=== PATIENT | male | born 1950 | race Caucasian/White ===

== ENCOUNTER → 2016-02-09 | Outpatient (CLI) | payer BC, MEDICARE ==
[~2016-02-09] MED LIST: ALLO300T PO; ASPI-484 PO; CLOP75TA22 PO; LOSA100T6 PO; METF500T4 PO; OMEG1CAP38 PO; OMEP40CA6 PO; RIVA20TA PO; [UNRECOGNIZED DRUG - CODE] PO
== END | disposition home or self-care (01) ==
LOC: SLAB 19:42
PROVIDERS: ATTEND Internal Medicine
DX: G47.33 Obstructive sleep apnea (adult) (pediatric) (principal)
CPT/HCPCS: 95811

== ENCOUNTER 2016-06-10 02:51 | Emergency (ER) | payer BC, MEDICARE ==
[~2016-06-10] VITALS: Ht 175.3 cm; Wt 110.2 kg
--- NOTE | 2016-06-10 03:24 | NUR ---
ultrasound ULTRASOUND CALLED OUT FOR EXAM
[2016-06-10] MEDS ORDERED: TORADOL ONE (03:27)
[2016-06-10] MEDS ORDERED: TORADOL IM ONE (03:30)
--- NOTE | 2016-06-10 03:51 | ER.PDOC ---
General Chief Complaint: Extremities Stated Complaint: RT LEG PAIN Time seen by MD: 03:50 Source: patient Exam Limitations: no limitations History of Present Illness Initial Comments Right leg pain of sudden onset. Denies injury. Onset: this morning Where: home Severity: severe Exacerbated By: walking movement Relieved By: rest Allergies: Coded Allergies: methadone (Verified Allergy, Intermediate, Rash, 07/01/14) morphine (Verified Allergy, Intermediate, Rash, 07/01/14) niacin (Verified Allergy, Intermediate, Rash, 07/01/14) Home Meds Active Scripts Clopidogrel Bisulfate (PLAVIX) 75 Mg Tablet, 75 MG PO DAILY for ANTIPLATELET, # 30 TABLET 4 Refills Prov:COREY GALEANA MD 12/01/15 Aspirin (ASPIR 81) 81 Mg Tablet.dr, 162 MG PO DAILY, #30 4 Refills Prov:COREY GALEANA MD 12/01/15 Reported Medications Omeprazole (OMEPRAZOLE) 40 Mg Capsule.dr, 1 CAP PO DAILY, #90 CAP 3 Refills 07/01/14 [place]-3/Dha/Epa/Fish Oil (FISH OIL 1,400 MG SOFTGEL) 1 Each Capsule.dr, 1 EACH PO 07/01/14 Topiramate (TOPIRAMATE) 100 Mg Tablet, 1 TAB PO TID, #60 TAB 2 Refills 07/01/14 Losartan Potassium (LOSARTAN POTASSIUM) 100 Mg Tablet, 1 TAB PO DAILY, #90 TAB 3 Refills 07/01/14 Metformin Hcl (METFORMIN HCL) 500 Mg Tablet, 1 TAB PO DAILY, #180 TAB 1 Refill 07/01/14 Allopurinol (ALLOPURINOL) 300 Mg Tablet, 1 TAB PO DAILY, #30 TAB 5 Refills 07/01/14 Past Medical History Medical History: coronary artery disease, cardiac problems, other Surgical History: cardiac cath, appendectomy, back, neck, stent, shoulder, tonsillectomy Social History Smoking: quit greater than 1 year Alcohol Use: occassionally Drug Use: Hydrocodone Review of Systems Constitutional: no symptoms reported Respiratory: no symptoms reported Cardiovascular: no symptoms reported Gastrointestinal: no symptoms reported Genitourinary: no symptoms reported Musculoskeletal: see HPI All Other Systems: Reviewed and Negative Physical Exam General Appearance: Alert, No Apparent Distress Lower Extremity: tenderness (right leg) Joint Exam: joints nml, nml ROM, nml gait/weight bearing Vascular: no vascular compromise, pulses full/equal Neuro/Psych: sensation nml, motor nml, oriented x3, CN's nml as tested, mood/ affect nml Back/Neck: nml inspection EENT: eyes inspection nml, ENT inspection nml, pharynx nml Respiratory: no resp distress, breath sounds nml CVS: reg rate & rhythm, heart sounds nml Abdomen: non-tender, no organomegaly, no bruit/mass Results/Orders Results/Orders Laboratory Tests Test 06/10/16 03:30 White Blood Count 9.3 10^3/uL (4.5-11.0) Red Blood Count 4.85 10^6/uL (4.50-5.90) Hemoglobin 15.1 g/dL (13.9-16.3) Hematocrit 44.5 % (37.0-53.0) Mean Corpuscular Volume 91.8 fL (78-100) Mean Corpuscular Hemoglobin 31.1 pg (26-34) Mean Corpuscular Hemoglobin Concent 33.9 g/dL (33-37) Red Cell Distribution Width 13.7 % (11.5-14.5) Platelet Count 186 10^3/uL (150-400) Mean Platelet Volume 9.5 fL (7.8-11.0) Neutrophils (%) (Auto) 63.9 % (41.0-85.0) Lymphocytes (%) (Auto) 21.9 % (24.0-44.0) Monocytes (%) (Auto) 11.5 % (5.0-12.0) Neutrophils # (Auto) 6.0 10^3/uL (1.8-7.7) Lymphocytes # (Auto) 2.0 10^3/uL (1.0-4.8) Monocytes # (Auto) 1.1 10^3/uL (0.3-0.8) Absolute Immature Granulocyte (auto 0.03 10^3 u/L (0-2) Eosinophils % 1.9 % (0.0-5.0) Basophils % 0.5 % (0.0-0.2) Basophils # 0.1 10^3/uL (0.0-0.1) Eosinophil Count 0.2 10^3/uL (0.0-0.2) Prothrombin Time 11.0 SEC (9.8-11.9) Prothromb Time International Ratio 1.0 Activated Partial Thromboplast Time 24.3 SEC (24.67-30.72) D-Dimer 0.27 mg/L (0.19-0.4) Sodium Level 141 mmol/L (132-145) Potassium Level 3.7 mmol/L (3.6-5.2) Chloride Level 106.0 mmol/L (96-109) Carbon Dioxide Level 22.9 mmol/L (20.0-32) Anion Gap 15.8 Blood Urea Nitrogen 14 mg/dL (7-18) Creatinine 0.90 mg/dL (0.59-1.40) Estimated GFR () 102.2 BUN/Creatinine Ratio 15.0 Glucose Level 129 mg/dL (70-110) Calculated Osmolality 294.0 Calcium Level 8.6 mg/dL (8.4-10.5) Total Bilirubin 0.3 mg/dL (0.2-1.0) Aspartate Amino Transf (AST/SGOT) 5 U/L (0-35) Alanine Aminotransferase (ALT/SGPT) 21 U/L (12-78) Alkaline Phosphatase 103 U/L (50-136) Total Creatine Kinase 306 U/L (39-308) Total Protein 7.1 g/dL (6.4-8.2) Albumin 3.6 g/dL (3.4-5.0) Globulin 3.5 Percent Immature Gran (Cell Imm) 0.30 % (0.00-0.50) Administered Medications Medications (Trade) Dose Ordered Sig/Cesar Route PRN Reason Start Time Stop Time Status Last Admin Dose Admin Ketorolac Tromethamine (Toradol) 60 mg OT ONCE IM 06/10/16 03:30 06/10/16 03:32 DC 06/10/16 03:32 EKG/XRAY/CT/US Utrasound Comments: No DVT in RLE Departure Time of Disposition: 05:09 Disposition: 01 HOME, SELF-CARE Impression: Primary Impression: Right leg pain Condition: Stable Referrals: COREY GALEANA MD (PCP) PRIMARY CARE PROVIDER Additional Instructions: Continue pain medication at home Ibuprofen F/U with your PCP next week LEVAR MONTES MD June 10, 2016 03:51
[2016-06-10 03:54] LABS: BASOPHIL # 0.1 10^3/uL (0.0-0.1); BASOPHIL % 0.5 % (0.0-0.2); EOSINOPHIL # 0.2 10^3/uL (0.0-0.2); EOSINOPHIL % 1.9 % (0.0-5.0); HEMATOCRIT 44.5 % (37.0-53.0); HEMOGLOBIN 15.1 g/dL (13.9-16.3); LYMPHOCYTES % 21.9 % (24.0-44.0); MEAN CELL HGB 31.1 pg (26-34); MEAN CELL HGB CONCENTRATION 33.9 g/dL (33-37); MEAN CORP VOLUME 91.8 fL (78-100); MEAN PLATELET VOLUME 9.5 fL (7.8-11.0); MONOCYTES # 1.1 10^3/uL (0.3-0.8); MONOCYTES % 11.5 % (5.0-12.0); NEUTROPHILS % 63.9 % (41.0-85.0); RED CELL DISTRIBUTION WIDTH 13.7 % (11.5-14.5); WHITE BLOOD CELL 9.3 10^3/uL (4.5-11.0)
[2016-06-10 03:55] LABS: CALCIUM 8.6 mg/dL (8.4-10.5); CARBON DIOXIDE 22.9 mmol/L (20.0-32)
--- NOTE | 2016-06-10 04:25 | NUR ---
BACK TO ROOM
--- NOTE | 2016-06-10 04:47 | DIREP ---
PROCEDURE:US DUPLEX EXTREM VEINS UNILATER/LIMITED-RT COMPARISON:[facility], , DUPLEX EXTREM VEINS UNILATER/LIMITED-LT, 11/03/2015, 05:16 PM. INDICATIONS:RLE pain, possible DVT, Hx DVT 2015 TECHNIQUE:The right lower extremity was evaluated utilizing cai scale images with segmental compression, color Doppler, and spectral Doppler with respiratory variation and augmentation. FINDINGS: Common femoral vein:Patent Superficial femoral vein:Patent Popliteal vein:Patent Anterior tibial vein:Patent Posterior tibial vein:Patent Greater saphenous vein:Patent Waveforms are within normal limits. CONCLUSION:No sonographic evidence of deep venous thrombosis in the right lower extremity Dictated by: Melchor Mckinney M.D. on 06/10/2016 at 04:44 AM
[2016-06-10] MEDS ORDERED: DILAUDID IM STA (05:09)
[2016-06-10] MEDS ORDERED: DILAUDID ONE (05:18)
[2016-06-10 05:48] VITALS: BP 131/70
== END 2016-06-10 05:50 | disposition home or self-care (01) ==
LOC: ER 03:08
DX: M79.604 Pain in right leg (principal); I25.10 Atherosclerotic heart disease of native coronary artery without angina pectoris; F11.10 Opioid abuse, uncomplicated; Z79.82 Long term (current) use of aspirin; Z88.5 Allergy status to narcotic agent; Z88.8 Allergy status to other drugs, medicaments and biological substances; Z77.22 Contact with and (suspected) exposure to environmental tobacco smoke (acute) (chronic); Z79.899 Other long term (current) drug therapy
CPT/HCPCS: 36415; 80053; 82550; 85025; 85379; 85610; 85730; 93971; 96372 ×2; 99285; J1170; J1885; 96374; 96375

== ENCOUNTER → 2016-08-02 | Outpatient (CLI) | payer BC | END | disposition home or self-care (01) | LOC: LAB 14:39 | PROVIDERS: ATTEND Internal Medicine | DX: R80.9 Proteinuria, unspecified (principal) | CPT/HCPCS: 82043 ==

== ENCOUNTER → 2016-08-10 | Outpatient (CLI) | payer BC ==
--- NOTE | 2016-08-10 10:15 | DIREP ---
PROCEDURE:US KIDNEYS-BILAT COMPARISON:None. INDICATIONS:E11.40 TYPE 2 DIABETES TECHNIQUE:Ultrasound examination was performed of the kidneys and bladder. FINDINGS: RIGHT KIDNEY:13.38 cm x 8.03 cm x 7.41 cm LEFT KIDNEY:13.51 cm x 4.79 cm x 7.03 cm RIGHT KIDNEY: . The cortical thickness of the right kidney is 1.9 cm. LEFT KIDNEY: The cortical thickness of the left kidney is 2.2 cm. The corticomedullary differentiation is normal. No renal stones, hydronephrosis, renal cysts or solid lesions are seen. There is a small amount of free fluid surrounding the kidneys bilaterally. There are a few cortical microcalcifications seen in the kidneys bilaterally. BLADDER:Normal. OTHER:Negative. CONCLUSION:Cortical calcifications in the kidneys bilaterally. No hydronephrosis is seen. Free fluid surrounding the kidneys bilaterally. Dictated by: Ranulfo Herrera MD on 08/10/2016 at 10:11 AM
--- NOTE | 2016-08-10 19:01 | DIREP ---
PROCEDURE:CT SOFT TISSUE NECK W/O COMPARISON:[facility], US, US KIDNEYS-BILAT, 08/10/2016, 09:00 AM. INDICATIONS:BIOMECHANICAL LESIONS OF CERVICAL, SPONDYLOSIS, STENOSIS, OCCIPATAL NEURALY TECHNIQUE:CT images were created without intravenous contrast material. Sagittal and coronal reconstructions are performed. FINDINGS: NASOPHARYNX:Normal. Fossae of Rosenmuller and torus tubarius are symmetric. ORAL CAVITY:Normal. No visible mass. OROPHARYNX:Normal. Faucial and lingual tonsils are symmetric. HYPOPHARYNX:Normal. No mass or other visible lesion. LARYNX:Normal. The vocal cords are symmetric and without mass. SINUSES:Normal. Limited views show no significant fluid or mucosal thickening. NECK GLANDS:Normal. The parotid, submandibular, and thyroid glands are unremarkable. LYMPH NODES:Normal. No pathological-appearing or enlarged lymph nodes. SKULL BASE:Normal. Foramina are symmetric without bony erosion. VASCULATURE:Normal. Limited views are unremarkable. BONES:Anterior interbody fusion at C3-4. Minimal anterolisthesis at C2-3 due to degenerative change. Anterior spondylotic bone spurs at the C2-3, C4-5, and C5-6 discs. Mild posterior bony ridge at the level of C3-4 interbody fusion. This does not cause significant central canal or foraminal stenosis. Mild disc space narrowing and mild posterior disc bulge at C5-6. Mild posterior disc-osteophyte bulge at C5-6. This causes mild central canal spinal stenosis. Mild right C5-6 uncovertebral arthropathy. OTHER:Electrode devices are noted in the subcutaneous soft tissues on the posterior aspect of the upper C-spine, at the C1 level. Incidental note is made of several small nuchal ligament calcifications in the posterior aspect of the lower C-spine, not clinically significant. CONCLUSION: 1. No acute soft tissue pathology in the neck. 2. Electrodes noted in the posterior aspect of the upper neck. 3. Previous surgical anterior interbody fusion at the C3-4 level. 4. Multilevel degenerative disc and joint changes of the C-spine. At the C5-6 level there is mild posterior disc-osteophyte bulge which causes mild central canal spinal stenosis Dictated by: Ruben Escudero M.D. on 08/10/2016 at 06:52 PM
== END | disposition home or self-care (01) ==
LOC: RAD 08:52
PROVIDERS: ATTEND Internal Medicine
DX: M48.02 Spinal stenosis, cervical region (principal); M43.12 Spondylolisthesis, cervical region; M54.81 Occipital neuralgia; M99.81 Other biomechanical lesions of cervical region; E11.40 Type 2 diabetes mellitus with diabetic neuropathy, unspecified; N28.89 Other specified disorders of kidney and ureter; M47.892 Other spondylosis, cervical region; M12.88 Other specific arthropathies, not elsewhere classified, other specified site
CPT/HCPCS: 70490; 76770

== ENCOUNTER 2019-02-22 13:54 | Emergency (ER) | payer BC ==
[~2019-02-22] VITALS: Ht 175.3 cm; Wt 111.1 kg
[~2019-02-22 13:54] MED LIST changes: -CLOP75TA22 PO; +CLOP75TA52 PO; +LOSA100T14 PO; -LOSA100T6 PO; +METF500T17 PO; -METF500T4 PO; +OMEP40CA41 PO; -OMEP40CA6 PO; +TOPI100T8 PO; -[UNRECOGNIZED DRUG - CODE] PO
[2019-02-22 14:10] VITALS: BP 150/88
[2019-02-22] MEDS ORDERED: PHENERGAN IM STA (15:16)
--- NOTE | 2019-02-22 15:16 | ER.PDOC ---
General Chief Complaint: Cough/Congestion Stated Complaint: TROUBLE BEATHE/COLD Time seen by MD: 14:55 Source: patient, family Exam Limitations: no limitations History of Present Illness Initial Comments coughing x 2 weeks, pt states nausea and headache from the coughing, fever, mild shortness of breath x 3 days Timing/Duration: other Severity: moderate Associated Symptoms: fever/chills, sore throat, cough, productive cough, mild SOB Allergies: Coded Allergies: methadone (Verified Allergy, Intermediate, Rash, 07/01/14) morphine (Verified Allergy, Intermediate, Rash, 07/01/14) niacin (Verified Allergy, Intermediate, Rash, 07/01/14) Home Meds Active Scripts Clopidogrel Bisulfate (PLAVIX) 75 Mg Tablet, 75 MG PO DAILY for ANTIPLATELET, # 30 TABLET 4 Refills Prov:COREY GALEANA MD 12/01/15 Aspirin (ASPIR 81) 81 Mg Tablet.dr, 162 MG PO DAILY, #30 4 Refills Prov:COREY GALEANA MD 12/01/15 Reported Medications Omeprazole (OMEPRAZOLE) 40 Mg Capsule.dr, 1 CAP PO DAILY, #90 CAP 3 Refills 07/01/14 [place]-3/Dha/Epa/Fish Oil (FISH OIL 1,400 MG SOFTGEL) 1 Each Capsule.dr, 1 EACH PO 07/01/14 Topiramate (TOPIRAMATE) 100 Mg Tablet, 1 TAB PO TID, #60 TAB 2 Refills 07/01/14 Losartan Potassium (LOSARTAN POTASSIUM) 100 Mg Tablet, 1 TAB PO DAILY, #90 TAB 3 Refills 07/01/14 Metformin Hcl (METFORMIN HCL) 500 Mg Tablet, 1 TAB PO DAILY, #180 TAB 1 Refill 07/01/14 Allopurinol (ALLOPURINOL) 300 Mg Tablet, 1 TAB PO DAILY, #30 TAB 5 Refills 07/01/14 Constitutional: see HPI EENTM: see HPI Respiratory: see HPI Cardiovascular: no symptoms reported Gastrointestinal: see HPI Genitourinary: no symptoms reported Musculoskeletal: no symptoms reported Skin: no symptoms reported Psychiatric/Neurological: see HPI All Other Systems: Reviewed and Negative Past Medical History Medical History: cardiac problems, diabetes Surgical History: back, stent, shoulder Social History Alcohol Use: occassionally Drug Use: none Physical Exam General Appearance: alert, mild distress Ear: ear nml Nose: nose nml, rhinorrhea Throat: pharyngeal erythema Neck: nml inspection, supple Respiratory: no resp.distress, rhonchi Abdomen: non-tender CVS: reg rate & rhythm, heart sounds nml Skin: color nml, no rash, warm/dry Extremities: non-tender, nml ROM NEURO/PSYCH: oriented x 3 Comments coughing, vomiting sputum at the bedside Results/Orders Results/Orders Orders - JAYLA BEJARANO Lex [employer] Strep Screen (02/22/19 15:12) Influenza A&B (02/22/19 15:12) Xr Chest 2v (02/22/19 15:12) Promethazine Hcl (Phenergan) (02/22/19 15:16) Ketorolac Tromethamine (Toradol) (02/22/19 15:30) Vital Signs Date Time Temp Pulse Resp B/P (MAP) Pulse Ox O2 Delivery O2 Flow Rate FiO2 02/22/19 14:10 99.7 99 21 150/88 (108) 90 Room Air 02/22/19 14:10 99.7 99 21 90 Laboratory Tests Test 02/22/19 15:16 Influenza Type A Antigen NEGATIVE (NEG) Influenza B Immunofluorescence POSITIVE (NEG) Group A Streptococcus Screen NEGATIVE (NEGATIVE) Departure Time of Disposition: 16:15 Disposition: 01 HOME, SELF-CARE Impression: Primary Impression: Headache Additional Impressions: Nausea & vomiting Cough Flu Acute bronchitis Condition: Stable Patient Instructions: Acute Bronchitis, [id number], Cough, Adult, [id number] Referrals: JULIAN MCKINNON (PCP) PRIMARY CARE PROVIDER Additional Instructions: Return if symptoms worsening. See PCP as needed. Zofran ODT 4mg every 8 hours as needed for nausea and vomiting 15#. Prednisone 20 mg one by mouth every day x 5 days. 5#. Cheratussin AC take 5 ml every 8 hours as needed for cough 120 ml no refills. Pt refused Tamiflu Duration or Time Spent with Pa: 20 minutes Return to Work/School Can a patient return to work?: No Can a patient return to school: No Problem Qualifiers Primary Impression: Headache Headache type: unspecified Headache chronicity pattern: acute headache Intractability: intractable Qualified Codes: R51 - Headache Additional Impressions: Nausea & vomiting Vomiting type: unspecified Vomiting Intractability: intractable Qualified Codes: R11.2 - Nausea with vomiting, unspecified Acute bronchitis Bronchitis organism: unspecified organism Qualified Codes: J20.9 - Acute bronchitis, unspecified JAYLA BEJARANO NP Feb 22, 2019 15:16
[2019-02-22] MEDS ORDERED: TORADOL IM ONE (15:30)
--- NOTE | 2019-02-22 15:55 | DIREP ---
PROCEDURE:CHEST 2 VIEWS COMPARISON:[facility], CR, XRAY CHEST SINGLE VW, 11/29/2015, 03:23 PM. INDICATIONS:coughing, fever FINDINGS: LUNGS/PLEURA:No significant pulmonary parenchymal abnormalities. No effusions. VASCULATURE:Normal. Unremarkable pulmonary vasculature. CARDIAC:Normal. No cardiac silhouette abnormality or cardiomegaly. MEDIASTINUM:Normal. No visible mass or adenopathy. BONES:No acute pathology. Degenerative changes noted in the T-spine. OTHER:Negative. CONCLUSION:No acute cardiac or pulmonary disease. Dictated by: Ruben Escudero M.D. on 02/22/2019 at 03:53 PM
== END 2019-02-22 16:33 ==
LOC: ER 13:54
DX: J20.9 Acute bronchitis, unspecified (principal); R51 Headache; E11.9 Type 2 diabetes mellitus without complications; Z79.82 Long term (current) use of aspirin; Z79.899 Other long term (current) drug therapy; Z88.5 Allergy status to narcotic agent
CPT/HCPCS: 71046; 87070; 87804; 87880; 99284; J1885; J2550